=== PATIENT | female | born 1955 | race Hispanic/Latino ===

== ENCOUNTER 2021-11-20 17:32 | Emergency (ER) | payer MEDICARE ==
[~2021-11-20] VITALS: Ht 157.5 cm; Wt 52.2 kg
[2021-11-20 17:32] VITALS: BP 123/54
== END 2021-11-20 20:40 | disposition left against medical advice (07) ==
LOC: EDH 17:32
DX: E87.6 Hypokalemia (principal); Z53.21 Procedure and treatment not carried out due to patient leaving prior to being seen by health care provider

== ENCOUNTER → 2022-06-12 | Outpatient (CLI) | payer MEDICARE | END | disposition home or self-care (01) | LOC: SHCH 10:48 | PROVIDERS: ATTEND Internal Medicine Cardiovascular Disease | DX: I08.8 Other rheumatic multiple valve diseases (principal); I42.9 Cardiomyopathy, unspecified; I25.10 Atherosclerotic heart disease of native coronary artery without angina pectoris; I87.2 Venous insufficiency (chronic) (peripheral); E78.5 Hyperlipidemia, unspecified; E11.22 Type 2 diabetes mellitus with diabetic chronic kidney disease; N18.6 End stage renal disease | CPT/HCPCS: 93306 ==

== ENCOUNTER → 2022-08-26 | Outpatient (CLI) | payer MEDICARE | END | disposition home or self-care (01) | LOC: RAH 14:28 | PROVIDERS: ATTEND Podiatrist | DX: E11.51 Type 2 diabetes mellitus with diabetic peripheral angiopathy without gangrene (principal); E11.621 Type 2 diabetes mellitus with foot ulcer; M20.42 Other hammer toe(s) (acquired), left foot; M20.11 Hallux valgus (acquired), right foot; B35.1 Tinea unguium | CPT/HCPCS: 93922 ==

== ENCOUNTER → 2023-09-21 | Outpatient (CLI) | payer MEDICARE | END | disposition home or self-care (01) | LOC: SHCH 10:25 | PROVIDERS: ATTEND Internal Medicine Cardiovascular Disease | DX: I34.81 Nonrheumatic mitral (valve) annulus calcification (principal); I11.9 Hypertensive heart disease without heart failure; R07.9 Chest pain, unspecified; R06.09 Other forms of dyspnea; E11.9 Type 2 diabetes mellitus without complications; E78.5 Hyperlipidemia, unspecified | CPT/HCPCS: 93306 ==

== ENCOUNTER → 2024-04-04 | Outpatient (CLI) | payer MEDICARE ==
[~2024-04-04] VITALS: Ht 157.5 cm; Wt 58.9 kg
[2024-04-04 11:40] LABS: BASOPHILS # (AUTO) 0.07 K/uL (0.00-0.20); BASOPHILS % (AUTO) 1.2 % (0.0-5.0); EOSINOPHILS # (AUTO) 0.34 K/uL (0.00-0.70); EOSINOPHILS % (AUTO) 5.6 % (0.0-8.0); HEMATOCRIT 45.5 % (36-48); IMMATURE GRANULOCYTE ABSOLUTE 0.02 K/uL (0-1); LYMPHOCYTES # (AUTO) 1.2 K/uL (1.0-4.8); LYMPHOCYTES % (AUTO) 20.6 % (21.0-51.0); MEAN CORPUSCULAR HGB CONC 30.3 g/dL (32.0-36.0); MEAN CORPUSCULAR VOLUME 108.9 fL (79-99); MONOCYTES # (AUTO) 0.5 K/uL (0.1-1.0); MONOCYTES % (AUTO) 8.8 % (3.0-13.0); NEUTROPHILS # (AUTO) 3.8 K/uL (1.8-7.7); NEUTROPHILS % (AUTO) 63.5 % (40.0-77.0); PLATELET COUNT (AUTO) 174 K/uL (130-400); RED BLOOD CELL COUNT(AUTO) 4.18 MIL/uL (4.00-5.50); RED CELL DISTRIBUTION WIDTH 15.5 % (11.0-15.5)
[2024-04-04 11:58] LABS: ALBUMIN 3.6 g/dL (3.5-5.0); BILIRUBIN,TOTAL 0.5 mg/dL (0.2-1.0); CREATININE 6.6 mg/dL (0.5-1.0); POTASSIUM 4.7 mmol/L (3.5-5.1)
[2024-04-04 12:05] VITALS: BP 115/42; PULSE 78; RESP 16
[2024-04-04 12:05] LABS: INR 1.02 (0.85-1.15); PARTIAL THROMBOPLASTIN TIME 26.7 SEC (26.3-35.5); PROTHROMBIN TIME 10.8 SEC (9.6-11.6)
== END | disposition home or self-care (01) ==
LOC: DAH 10:00 → EDSTATUS 04-05 09:00
PROVIDERS: ATTEND Student in an Organized Health Care Education/Training Program
DX: Z01.818 Encounter for other preprocedural examination (principal); I12.0 Hypertensive chronic kidney disease with stage 5 chronic kidney disease or end stage renal disease; E11.22 Type 2 diabetes mellitus with diabetic chronic kidney disease; N18.6 End stage renal disease; I25.10 Atherosclerotic heart disease of native coronary artery without angina pectoris; R31.9 Hematuria, unspecified; E66.9 Obesity, unspecified; Z95.1 Presence of aortocoronary bypass graft; Z90.49 Acquired absence of other specified parts of digestive tract; Z96.653 Presence of artificial knee joint, bilateral; Z99.2 Dependence on renal dialysis; Z79.899 Other long term (current) drug therapy; Z89.422 Acquired absence of other left toe(s)
CPT/HCPCS: 93005; 80053; 85025; 85610; 85730; 36415; A6260

== ENCOUNTER → 2024-05-04 | Outpatient (CLI) | payer MEDICARE | END | disposition home or self-care (01) | LOC: SHCH 13:27 | PROVIDERS: ATTEND Internal Medicine Cardiovascular Disease | DX: I73.9 Peripheral vascular disease, unspecified (principal); I95.3 Hypotension of hemodialysis; I42.9 Cardiomyopathy, unspecified; R79.89 Other specified abnormal findings of blood chemistry; I10 Essential (primary) hypertension; I25.10 Atherosclerotic heart disease of native coronary artery without angina pectoris; E11.9 Type 2 diabetes mellitus without complications; I87.2 Venous insufficiency (chronic) (peripheral); I12.0 Hypertensive chronic kidney disease with stage 5 chronic kidney disease or end stage renal disease; E78.2 Mixed hyperlipidemia; I65.23 Occlusion and stenosis of bilateral carotid arteries; Z95.1 Presence of aortocoronary bypass graft; Z86.16 Personal history of COVID-19; N18.6 End stage renal disease; Z99.2 Dependence on renal dialysis; Z79.899 Other long term (current) drug therapy | CPT/HCPCS: 93880 ==

== ENCOUNTER 2024-06-03 06:35 | Day surgery (SDC) | payer MEDICARE ==
[2024-05-30 11:53] LABS: BASOPHILS # (AUTO) 0.05 K/uL (0.00-0.20); BASOPHILS % (AUTO) 0.9 % (0.0-5.0); EOSINOPHILS # (AUTO) 0.17 K/uL (0.00-0.70); HEMATOCRIT 40.3 % (36-48); IMMATURE GRANULOCYTE ABSOLUTE 0.01 K/uL (0-1); LYMPHOCYTES # (AUTO) 1.6 K/uL (1.0-4.8); LYMPHOCYTES % (AUTO) 27.9 % (21.0-51.0); MEAN CORPUSCULAR HEMOGLOBIN 32.1 pg (27.0-33.0); MEAN CORPUSCULAR HGB CONC 31.8 g/dL (32.0-36.0); MONOCYTES # (AUTO) 0.7 K/uL (0.1-1.0); MONOCYTES % (AUTO) 12.3 % (3.0-13.0); NEUTROPHILS # (AUTO) 3.1 K/uL (1.8-7.7); NEUTROPHILS % (AUTO) 55.7 % (40.0-77.0); PLATELET COUNT (AUTO) 100 K/uL (130-400); RED BLOOD CELL COUNT(AUTO) 3.99 MIL/uL (4.00-5.50); RED CELL DISTRIBUTION WIDTH 14.6 % (11.0-15.5); WHITE BLOOD COUNT (AUTO) 5.6 K/uL (4.8-10.8)
[2024-05-30 12:08] LABS: INR 0.98 (0.85-1.15); PROTHROMBIN TIME 10.6 SEC (9.6-11.6)
[2024-05-30 12:10] LABS: PARTIAL THROMBOPLASTIN TIME 27.7 SEC (26.3-35.5)
[2024-05-30 12:11] VITALS: BP 175/52; PULSE 80; RESP 18
[2024-05-30 12:13] LABS: ALBUMIN 3.6 g/dL (3.5-5.0); BILIRUBIN,TOTAL 0.4 mg/dL (0.2-1.0); CREATININE 5.3 mg/dL (0.5-1.0); POTASSIUM 4.7 mmol/L (3.5-5.1); TOTAL PROTEIN, SERUM 6.6 g/dL (6.0-8.3)
[~2024-06-03] VITALS: Ht 157.5 cm; Wt 59.9 kg
[2024-06-03] VITALS (16 sets, daily range): BP systolic 120–149; BP diastolic 48–61; PULSE 85–97; RESP 14–16
[~2024-06-03 06:35] MED LIST: ACET-2806 PO; ACET325T51 PO; ALPR0.5T8 PO; ASCO500T10 PO; ATOR10 PO; CALC667C10 PO; CARB-283 OU; CETI10TA57 PO; CLON0.1T PO; COLL30OI TP; CYAN-52 PO; FERR-72 PO; FLUO5DRO OU; FOLI1 PO; FOLI1TAB85 PO; GABA-529 PO; HYDR50TA37 PO; INSLAN SQ; INSU100I3 SQ; LACT10SO9 PO; LATA2.5D14 OU; LID5O TP; LINE600T11 PO; METH-811 PO; MIDO10TA PO; MUPI22OI2 TP; ONDA-104 PO; SENN8.6T32 PO; SODI650T PO; TRAM50TA4 PO
[2024-06-03 08:09] LABS: CREATININE 4.2 mg/dL (0.5-1.0); POTASSIUM 3.8 mmol/L (3.5-5.1)
[2024-06-03] MEDS ORDERED: LIDOCAINE PF 100MG/5ML (2%) SYRINGE 5ML ONE (08:11)
[2024-06-03] MEDS ORDERED: proPOFol 10 MG/ML 20ML VIAL IV ONE (08:11)
[2024-06-03] MEDS ORDERED: FENTanyl CITRate PF 50 MCG/1 ML 2ML VIAL ONE (08:11)
[2024-06-03] MEDS ORDERED: ONDANSETRON 4MG INJ ONE (08:11)
[2024-06-03] MEDS ORDERED: PHENYLEPHRINE HCL 10 MG/ML 1ML VIAL IV ONE (08:11)
[2024-06-03] MEDS ORDERED: HEParin-NS 1,000 UNIT/500 ML 500 ML IV ONE (08:25)
[2024-06-03] MEDS ORDERED: BUPIvacaine/PF 0.25% 30ML VIAL IJ ONE (08:26)
[2024-06-03] MEDS: ceFAZolin SODIUM 2 GM VIAL ONE (08:30)
[2024-06-03] MEDS ORDERED: ePHEDrine SULFate 50 MG/ML AMPULE ONE (08:40)
[2024-06-03] MEDS: LIDOCAINE HCL 1% 20 ML VIAL ONE (08:50)
[2024-06-03] MEDS: BUPIvacaine/PF 0.5% 30ML VIAL INJ ONE (08:50)
[2024-06-03] MEDS: 0.9%NACL 1000ML 1,000 ML IV ONE (09:44)
== END 2024-06-03 11:08 | disposition home or self-care (01) ==
LOC: DAH 06:35
PROVIDERS: ATTEND Student in an Organized Health Care Education/Training Program
DX: T82.898A Other specified complication of vascular prosthetic devices, implants and grafts, initial encounter (principal); I12.0 Hypertensive chronic kidney disease with stage 5 chronic kidney disease or end stage renal disease; E11.22 Type 2 diabetes mellitus with diabetic chronic kidney disease; N18.6 End stage renal disease; E78.5 Hyperlipidemia, unspecified; Y83.8 Other surgical procedures as the cause of abnormal reaction of the patient, or of later complication, without mention of misadventure at the time of the procedure; Z99.2 Dependence on renal dialysis; Z79.899 Other long term (current) drug therapy
CPT/HCPCS: 80053; 85025; 85610; 85730; 36415 ×2; 93005; 35903; 80048; 82948 ×2; 88300; A6260; A4663; J3010; J7030; J0665 ×2; J2001; J3490; J2704; J2405; J1644; J2371; J0690; A4649 ×2; C1713 ×2; A4930; A4215; A4213; A4222; A4221; A4223 ×2; G0168

== ENCOUNTER → 2024-10-21 | Outpatient (CLI) | payer MEDICARE ==
[~2024-10-21] MED LIST changes: +ACET-3859 PO; -ACET325T51 PO; -MIDO10TA PO; +MIDO10TA3 PO
[2024-10-21] MEDS: REGADENOSON 0.4 MG/5 ML PF SYG IVP ONE (16:01)
== END | disposition home or self-care (01) ==
LOC: SHCH 08:51
PROVIDERS: ATTEND Internal Medicine Cardiovascular Disease
DX: R94.31 Abnormal electrocardiogram [ECG] [EKG] (principal); R07.89 Other chest pain; R06.09 Other forms of dyspnea
CPT/HCPCS: 78452; 93017; J2785; A9500 ×2